=== PATIENT | female | born 1935 | race Caucasian/White ===

== ENCOUNTER 2025-06-07 08:48 | Outpatient (AMB) | payer MEDICARE, MEDICAID, SELFPAY ==
--- NOTE | 2025-06-07 09:07 | MHC.OFFVIS ---
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 She was c/o discomfort in feet and legs at night affecting her sleep. She was complaining of burning discomfort in her feet. She and a daughter had multiple questions that were answered [facility] Medical History (Updated 06/07/25 @ 09:12 by Lola Dowd MD) Numbness and tingling Anxiety disorder Seizure disorder Hypertension Multifactorial gait disorder Cerebral microvascular disease Peripheral neuropathy Surgical History (Updated 05/31/25 @ 09:12 by Latoya Chau CMA) S/P cardiac pacemaker procedure Review of Systems Const Details: Numbness and tingling in feet and legs Physical Exam Neuro Other: Mental Status: Alert and oriented to person, place, and time. Normal attention. Normal spontaneous speech, fluency, and comprehension. No obvious issues with mood and memory. Affect is appropriate. Cranial Nerves: CN II: Visual gama full to confrontation, visual acuity intact. CN III, IV, : Pupils equal, round, reactive to light and accommodation. Extraocular movements are normal. CN V: Facial sensation is normal. CN VII: Facial movements symmetrical. CN VIII: Hearing intact to bedside conversation is normal. CN IX, X: Palate elevates symmetrically. CN XI: Shoulder shrug and head turn symmetrical. CN XII: Tongue midline without atrophy or fasciculations. Extrapyramidal: Full facial expressions and blinking. No rigidity. Movements are appropriate with no tremor or abnormality. Speech: Normal; no dysarthria or tremor. 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 04/27/24. Routine EEG at off in Jul 2022: WNL CT brain WO at [place] in 2019: WM changes (reported) CT brain WO from [place] in April 2022: mild to mod MVD. Code(s): G62.9 - Polyneuropathy, unspecified Category: Medical Qualifiers: Peripheral neuropathy type: polyneuropathy, unspecified Qualified Code(s): G62.9 - Polyneuropathy, unspecified Plan Impression: Peripheral neuropathy and associated pain at night Rec: a: Stop gabpentin, it is not helping b: Try pregabilin 100mg one at night Medications: New pregabalin 100 mg PO BEDTIME 30 caps 1RF Coding Level of Care Code Est Pt Level 4 (83130) Diagnoses Peripheral polyneuropathy G62.9 Peripheral neuropathy type: polyneuropathy, unspecified
--- OUTSIDE RECORDS SUMMARY | 2025-06-07 09:14 | XMS_ITS | Clinical Summary ---
Author Organization [facility] Address [address] [place] [address] Care Team Providers Care Adobe Flex Developer Name Role Phone Jose Cuenca MD Primary Care Provider [phone] Allergies Active Allergy Reactions Criticality Noted Date Comments Nsaids 05/03/2008 Renal insufficiency Medications Medication Sig Dispensed Refills Start Date End Date Status allopurinol (ZYLOPRIM) 100 MG tablet Take 100 mg by mouth daily. 1 11/24/2018 Active atorvastatin (LIPITOR) tablet 20 mg Take 20 mg by mouth daily. 1 11/23/2018 Active gabapentin (NEURONTIN) 100 MG capsule Take 100 mg by mouth 3 (three) times a day. 0 11/28/2018 Active metoprolol tartrate (LOPRESSOR) 25 MG tablet Take 25 mg by mouth 2 (two) times a day. 1 11/23/2018 Active amLODIPine (NORVASC) tablet 5 mg Take 5 mg by mouth daily. 1 11/23/2018 Active valsartan (DIOVAN) tablet 80 mg Take 80 mg by mouth. 0 12/18/2018 Active Active Problems Problem Noted Date Diagnosed Date Stiffness of right shoulder joint 01/16/2019 Impingement syndrome of left shoulder region Internal impingement of right shoulder 9 Subacromial bursitis of right shoulder joint Family History Medical History Relation Name Comments Hypertension Father Relation Name Status Comments Father Social History Tobacco Use Types Packs/Day Years Used Date Smoking Tobacco: Former Cigarettes Q uit: 1994 Smokeless Tobacco: Never Alcohol Use Standard Drinks/Week Comments No 0 (1 standard drink = 0.6 oz pur e alcohol) Sex and Gender Information Value Date Recorded Sex Assigned at Not on file Gender Identity Not on file Sexual Orientation Not on file Last Filed Vital Signs Vital Sign Reading Time Taken Comments Blood Pressure - - Pulse - - Temperature - - Respiratory Rate - - Oxygen Saturation - - Inhaled Oxygen Concentration - - Weight 74.4 kg (164 lb) 12/18/2018 1:25 PM EST Height 152.4 cm (5') 12/18/2018 1:25 PM EST Body Mass Index 32.03 12/18/2018 1:25 PM EST Plan of Treatment Health Maintenance Due Date Last Done Comments COVID-19 Vaccine (#1) 1936 Depression Screening 1948 Preventative Health Evaluation 1954 DTap / Tdap / Td (1 - Tdap) 1955 Shingrix-Zoster Vaccine (1 of 2) 1986 Fall Risk Assessment 2001 Osteoporosis Screening (DEXA Scan) 2001 RSV Adult > 60+ Yrs or (1 - 1-dose 75+ series) 2011 Influenza Vaccine (#1) 2025 9, 09/20/2017, 08/10/2016, Additional history exists Pneumococcal Vaccine Completed 10/28/2015, 06/27/20 12 Hepatitis B Vaccines Aged Out No long er eligible based on patient's age to complete this topic RSV Ped < 20 months Aged Out No longe r eligible based on patient's age to complete this topic Care Teams Adobe Flex Developer Relationship Specialty Start Date End Date Jose Cuenca MD [id number] [facility] [place] [address] PCP - General Internal Medicine 11/21/18
--- OUTSIDE RECORDS SUMMARY | 2025-06-07 09:14 | XMS_ITS | Clinical Summary ---
Author Organization [address] [place] [address] Address [address] [place] [address] Phone Care Team Providers Care Chef Kitchen Manager Name Role Phone Yeyo Perez MD Primary Care Provider [phone] Allergies Active Allergy Reactions Criticality Noted Date Comments Nsaids (Non-Steroidal Anti-Inflammatory Drug) 05/03/2008 Renal insufficiency Medications cyanocobalamin (VITAMIN B-12) 1,000 mcg/mL injection Inject 1 mL into the muscle every 30 days. 03/23/20 24 Active medical supply, miscellaneous (MISCELLANEOUS MEDICAL SUPPLY MISC) RESPIRATORY THERAPY SUPPLIES ([employer] HOLDING CHAMBER/MASK) DEVICE 1 Puff by Does not apply route as needed (shortness of breath). 07/17/20 21 Active calcium carb/vit D3/minerals (CALCIUM CARBONATE-VIT D3-MIN ORAL) Take 1 tablet by mouth daily. Active cholecalciferol (VITAMIN D-3) 25 mcg (1,000 unit) capsule TAKE 1 CAPSULE BY MOUTH EVERY DAY 90 capsule 1 10/28/19 25 Active valsartan (DIOVAN) 80 mg tablet TAKE 1 TABLET BY MOUTH EVERY DAY 90 tablet 11/02/19 25 Active Eliquis 2.5 mg tablet TAKE 1 TABLET BY MOUTH TWICE A DAY 180 tablet 11/02/19 25 Active gabapentin (NEURONTIN) 100 mg capsule Take 2 capsules (200 mg total) by mouth at bedtime. 180 each 1 12/24/19 25 2024 Active metoprolol tartrate (LOPRESSOR) 25 mg tablet TAKE 1 TABLET BY MOUTH TWICE A DAY 180 tablet 1 03/25/20 25 Active atorvastatin (LIPITOR) 20 mg tablet TAKE 1 TABLET BY MOUTH EVERY DAY 90 tablet 1 03/29/20 25 Active ferrous sulfate 325 mg (65 mg elemental iron) tablet TAKE 1 TABLET BY MOUTH EVERY DAY 90 tablet 1 03/29/20 25 Active acetaminophen (TYLENOL 8 HOUR) 650 mg 8 hr tablet TAKE 1 TABLET BY MOUTH EVERY 8 HOURS NEEDED FOR PAIN 30 tablet 1 04/09/20 25 Active alendronate (FOSAMAX) 70 mg tablet TAKE 1 TABLET BY MOUTH ONE TIME PER WEEK 12 tablet 1 04/15/20 25 Active amLODIPine (NORVASC) 10 mg tablet TAKE 1 TABLET BY MOUTH 1 TIME EACH DAY. 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 This was also apparently noted on review of the images of the patient's prior left heart cath from 2003. The interventional cardiology service did not recommend any intervention for this incidentally noted small coronary artery fistula. Other cardiomyopathies (CMS/HCC V24, CMS/HCC V28 ) 01/19/2025 Assessment & Plan (01/19/2025 9:16 AM EDT): The patient has a history of a mild nonischemic cardiomyopathy. Echocardiogram from 2021 showed a mildly reduced LVEF of 45 to 50%. Left heart cath from 2020 did not show any significant obstructive CAD. The patient has continued on medical therapy with metoprolol tartrate and valsartan. Will order an echocardiogram to reevaluate her cardiac function. If the cardiac function is still reduced, then we will switch her from metoprolol to tartrate to Toprol and will consider adding additional GDMT as needed. Orders: Transthoracic echocardiogram (TTE) complete with PRN contrast, bubble, strain, and 3D order panel; Future perflutren lipid microsphere (DEFINITY) 1.3 mL in sodium chloride 0.9% 8.7 mL injection Peripheral neuropathic pain 11/06/2024 PAF (paroxysmal atrial fibri llation) ([facility] V24, [facility] V28) 07/24/2022 Overview (08/18/2024): Last Assessment & Plan: Patient has been noted to have paroxysmal atrial fibrillation on device monitoring. She recently was treated for a TIA while vacationing in [facility]. Her QLU5TS2- VASc score is 6 representing a 9.7% risk of thromboembolism annually. Her last creatinine was 1.7. Given her advanced age and decreased renal function she would meet criteria for reduced dose Eliquis. We discussed anticoagulation and patient is agreeable to start Eliquis 2.5 mg twice daily. Patient advised that if she were to fall or have increased difficulties with her balance she should let us know and we would need to discuss risk/benefits of continuing with anticoagulation. We also discussed that if she were to have a fall and hit her head she should be seen in the emergency room. Assessment & Plan (01/19/2025 9:16 AM EDT): The patient has a history of atrial fibrillation which has been detected on her previous device interrogations. The patient continues on rate control therapy with beta yusuf. Also, the patient has an elevated [id number]-GWCl score and continues on anticoagulation therapy with apixaban. The patient is on Eliquis 2.5 mg orally twice a day given her age and that her creatinine usually hovers around 1.5. No episodes of abnormal bleeding have been noted. Will continue current therapy. 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 This showed no obstructive coronary artery disease. Patient denies any exertional anginal symptoms at this time. She continues on appropriate cardioprotective medical therapy with aspirin, beta- yusuf and statin. I have reviewed with the patient the importance of a heart healthy lifestyle which includes eating a low-fat low-salt diet, getting regular exercise, maintaining a healthy weight, not smoking, and following up with routine medical care. Assessment & Plan (01/19/2025 9:16 AM EDT): The patient was found to have very mild nonobstructive CAD on the left heart catheterization from 2020. She continues on medical therapy with amlodipine, metoprolol, and atorvastatin. She is also on antithrombotic therapy with Eliquis. As such, this point, we will continue her current medication regimen. Ascending aorta dilation ([facility] V24) 0 Overview (08/18/2024): 09/09 3.8 cm Last Assessment & Plan: Patient has history of mild ascending aortic dilatation on echocardiogram from 08/2020. She recently had an echocardiogram completed. Preliminary report only available today. I will reassess and report results to patient and her family once final report is available. Assessment & Plan (01/19/2025 9:16 AM EDT): The patient was found to have a mild ascending aorta dilation on her prior echocardiogram from 2021. Will order an echocardiogram for reevaluation of the ascending aorta dilation. Chronic pain of right knee 06/24/2020 Closed displaced fracture of fifth metatarsal bone of left foot 02/23/2020 Sprain of left ankle 02/23/2020 Lightheadedness 02/12/2019 Stiffness of right shoulder joint 01/16/2019 Benign hypertensive kidney disease 11/20/2018 Goiter 01/30/2018 [place] light chain disease ([facility] V24) 01/31/20 18 Gout 06/11/2016 Anemia 02/03/2016 Overview (08/18/2024): Mild, possible thallesemia Renal cyst, acquired, right 01/03/2016 Thalassemia minor 12/27/2015 Macular drusen 06/16/2015 Pseudophakia 06/16/2015 PVD (posterior vitreous detachment) 06/16/2015 CKD (chronic kidney disease) , stage III ([facility] V24, [facility] V28) 11/25/2013 Overview (08/18/2024): Microalbuminuria 11/25/2013 Overview (08/18/2024): Microalbumin 73 on 06/25/12. 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 Paroxysmal atrial fibrillation was identified on device monitoring as noted and outlined above. We will continue to monitor her device and patient started on anticoagulation as appropriate. Assessment & Plan (01/19/2025 9:16 AM EDT): The patient has a pacemaker in place. It is a [employer] dual-chamber pacemaker. Last device interrogation showed normal device function. Will continue monitoring. Hyperlipidemia 11/02/2005 Overview (08/18/2024): Last Assessment & Plan: Patient's last LDL cholesterol was 56. This is at goal. Continue with statin as prescribed. Assessment & Plan (01/19/2025 9:16 AM EDT): The patient has a history of hyperlipidemia. She also has a history of mild nonobstructive CAD. The patient is currently on atorvastatin 20 mg orally daily. Last lipid panel showed an adequate cholesterol control. Would recommend to continue her current therapy. Osteoporosis 11/02/2005 Overview (08/18/2024): Started fosomax 09/2019 Overweight (BMI 25.0-29.9) 11/02/2005 Type II diabetes mellitus wi th renal manifestations ([facility] V24, [facility] V28) 11/02/2005 Resolved Problems Problem Noted Date Diagnosed Date Resolved Date Heart block, AV 03/06/2021 01/19/2025 Aortic atherosclerosis ([facility] V24) 11/26/2011 01/19/2025 Chest pain 10/16/2006 01/19/2025 Encounters Date Type Department Care Team Description 04/15/2025 1:30 PM EDT Ancillary Procedure [facility] - [address] [place] [id number] Other cardiomyopathies (CMS/HCC V24, CMS/HCC V28) 04/12/2025 11:00 AM EDT Ancillary Procedure [facility] - [address] [place] [id number] 04/07/2025 Telephone [facility] [address] [place] [address] [address] [place] [address] KarthikDwayne Medrano MD from Last 3 Months Immunizations Name Administration Dates Next Due H1N1 Inj Preservative Free 11/17/2009 Influenza Quadravalent, MDCK , 0.5ml, with preservative (Flucelvax) 6mo and older 11/20/2018,09/20/2017 Influenza trivalent, 0.5mL ( Fluad) 65yo and older 07/06/2024,07/13/2022,07/04/2020 Influenza trivalent, 0.5mL, preservative free (Fluarix; FluLaval; Fluzone) ages 6mo and older (Afluria) 3 years and older 08/10/2016,10/28/2015,08/20/2014,09/08,08/29/2012,07/20/2011,11/17/2009 ,09/15/2008,11/02/2005 Lanyrd SARS-CoV-2 COVID-19, mRNA, LNP-S, preservative free 11/26/2020 Pneumococcal conjugate 13 va lent (Prevnar 13, PCV13) 2mo and older 10/28/2015 Pneumococcal polysaccharide 23 valent (Pneumovax 23) 2yo and older 06/27/2012 Td Tetanus diptheria (Tdvax) 7yo and older 11/02/2005 Zoster recombinant (Shingrix ) 19yo and older 05/02/2020 Surgical History Surgery Date Site/Laterality Comments TONSILLECTOMY ADENOIDECTOMY, BILATERAL MYRINGOTOMY AND TUBES PROCEDURE: PA TONSILLECTOMY & ADENOIDECTOMY <AGE 12 APPENDECTOMY PROCEDURE: PA APPENDECTOMY ESOPHAGOGASTRODUODENOSCOPY 10/29/11 PROCEDURE: PA ESOPHAGOGASTRODUODENOSCOPY TRANSORAL DIAGNOSTIC; COMMENT: normal COLONOSCOPY 04/15/07 PROCEDURE: HISTORICAL COLONOSCOPY; COMMENT: adenoma; repeat in five years COLONOSCOPY W/ POLYPECTOMY 09/19/12 PROCEDURE: PA COLSC FLX W/RMVL OF TUMOR POLYP LESION SNARE TQ; COMMENT: adenoma, tics, hemorrhoids; would not repeat CATARACT EXTRACTION PROCEDURE: HISTORICAL CATARACT REMOVAL; COMMENT: 12/22/14 OS, 11/08/14 OD BREAST BIOPSY Right PROCEDURE: BX BREAST; PERC NEEDLE CORE W/IMAG GUID; COMMENT: x3, b9,rt. & lt.-benign BREAST SURGERY 2012 Right PROCEDURE: PA UNLISTED PROCEDURE BREAST; COMMENT: x2, b9 Medical History Medical History Date Comments Impaired fasting glucose 11/02/2005 DX:Impa ired fasting glucose Other and unspecified hyperlipidemia 11/02/2005 DX:Other and unspecified hyperlipidemia Obesity, unspecified 11/02/2005 DX:Obesity, unspecified Unspecified hypothyroidism 11/02/2005 DX:Un specified hypothyroidism Senile osteoporosis 11/02/2005 DX:Senile os teoporosis Heartburn 11/02/2005 DX:Heartburn Essential hypertension, benign 11/02/2005 D X:Essential hypertension, benign Renal insufficiency 05/03/2008 DX:Renal ins ufficiency Esophageal reflux DX:Esophageal reflux Type II diabetes mellitus wi th renal manifestations (CMS/HCC V24, CMS/HCC V28) DX:Type II diabetes mellitus with renal manifestations (HCC) Ascending aorta dilation (CMS/HCC V24) 09/25/2020 DX:Ascending aorta dilation (HCC); COMMENT: 09/09 3.8 cm Family History Medical History Relation Name Comments Breast cancer Daughter 43 Cataracts Mother No Known Problems Sister Blindness Neg Hx Glaucoma Neg Hx Macular degeneration Neg Hx Strabismus Neg Hx Relation Name Status Comments Daughter 43 Alive Father Mother Sister Alive Social History Tobacco Use Types Packs/Day Years Used Date Smoking Tobacco: Former Cigarettes 0.8 35 0 10/21/1955 - 10/21/1990 Smokeless Tobacco: Never Alcohol Use Standard Drinks/Week Comments Yes 0 (1 standard drink = 0.6 oz pur e alcohol) rare Comments No Sex and Gender Information Value Date Recorded Sex Assigned at Not on file Legal Sex Female 1:28 PM EST Gender Identity Not on file Sexual Orientation Not on file Obstetrics History Last Filed Vital Signs Vital Sign Reading Time Taken Comments Blood Pressure 114/74 04/15/2025 2:23 PM EDT Pulse 60 01/19/2025 8:30 AM EDT Temperature - - Respiratory Rate - - Oxygen Saturation 97% 01/19/2025 8:30 AM EDT Inhaled Oxygen Concentration - - Weight 72.6 kg (160 lb) 04/15/2025 2:23 PM EDT Height 152.4 cm (5') 04/15/2025 2:23 PM EDT Body Mass Index 31.25 04/15/2025 2:23 PM EDT Plan of Treatment Upcoming Encounters Date Type Department Care Team (Late st Contact Info) Description 10/26/2025 1:00 PM EST Ancillary Procedure [facility] - [address] [facility] [address] [place] [address] Health Maintenance Due Date Last Done Comments Diabetes: Annual Foot Exam 1945 Diabetes: Annual Retina Eye Exam 1945 RSV Immunization Adult Patients (1 - 1-dose 75+ series) 2011 DTaP,Tdap,and Td Vaccines (2 - Td or Tdap) 11/02/2015 11/02/2005 Falls Risk Assessment 09/29/2022 Medicare Annual Wellness Visit 09/29/2022 Social Influencers of Health Screening 09/29/2022 COVID-19 Vaccine ( season) 2024 07/21/2023, 01/18/2022, 07/19/2021, Additional history exists Depression Screening 10/21/2024 Diabetes: Blood Sugar Control Test (HGBA1C) 06/06/2025 12/07/2024, 08/02/2024, 07/31/2024, Additional history exists Influenza Vaccine (#1) 2025 , 07/20/2023, 07/13/2022, Additional history exists Hypertension/CHF/CAD Annual BMP Blood Test 12/07/2025 12/07/2024, 08/02/2024, 07/31/2024 Osteoporosis Screening (Bone Density Screening) 10/19/2029 10/19/2019 Cholesterol Screening (Lipid Panel) 12/07/2029 12/07/2024, 08/02/2024, 07/31/2024 Pneumococcal Vaccine: 50+ Years Completed 10/28/2015, 06/27/2012 Zoster Vaccines Completed 05/02/2020, 12/16/2019 HIB Vaccines Aged Out No longer eligi ble based on patient's age to complete this topic HPV Vaccines Aged Out No longer eligi ble based on patient's age to complete this topic Hepatitis A Vaccines Aged Out No long er eligible based on patient's age to complete this topic Hepatitis B Vaccines Aged Out No long er eligible based on patient's age to complete this topic IPV Vaccines Aged Out No longer eligi ble based on patient's age to complete this topic MMR Vaccines Aged Out No longer eligi ble based on patient's age to complete this topic Meningococcal ACWY Vaccine Aged Out N o longer eligible based on patient's age to complete this topic Meningococcal B Vaccine Aged Out No l onger eligible based on patient's age to complete this topic RSV Immunization Patients Under 20 months Aged Out No longer eligible based on patient's age to complete this topic Varicella Vaccines Aged Out No longer eligible based on patient's age to complete this topic Medical Devices Implanted Type Area Legal Internship Device Identifier Shelf Expiration Date Model / Serial / Lot [employer] [id number] Assurity Mri(Tm) [id number] Implanted: by James Sorensen MD (Quantity not on file) Cardiac Pacemaker Left: Chest [employer]- [employer] 2272 ASSURITY MRI(TM) / [id number] / Procedures Procedure Name Priority Date/Time Associated Diagnosis Comments TRANSTHORACIC ECHOCARDIOGRAM (TTE) COMPLETE W/ CONTRAST Routine 04/15/2025 2:23 PM EDT Other cardiomyopathies (CMS/HCC V24, CMS/HCC V28) CARDIAC DEVICE CHECK- REMOTE- MURJ Routine 04/12/2025 10:58 AM EDT COMPREHENSIVE METABOLIC PANEL Routine 12/07/2024 9:03 AM EST Type 2 diabetes mellitus with other diabetic kidney complication, without long-term current use of insulin (CMS/HCC V24, CMS/HCC V28) HEMOGLOBIN A1C Routine 12/07/2024 9:03 AM EST Type 2 diabetes mellitus with other diabetic kidney complication, without long-term current use of insulin ([facility] V24, [facility] V28) LIPID PANEL WITH REFLEX TO DIRECT LDL Routine 12/07/2024 9:03 AM EST Type 2 diabetes mellitus with other diabetic kidney complication, without long-term current use of insulin ([facility] V24, [facility] V28) DXA BONE DENSITY STUDY 1+ SITS AXIAL SKEL Routine 10/19/2019 9:24 AM EST Age-related osteoporosis without current pathological fracture from Last 3 Months or Most Recently Relevant to Health Maintenance Results * (ABNORMAL) TRANSTHORACIC ECHOCARDIOGRAM (TTE) COMPLETE W/ CONTRAST (04/15/2025 2:23 PM EDT) LV EDV (A2C) 102 mL CV PACS LV EDV (A4C) 97 mL CV PACS LV Diastolic Volume (BP) 100 46 - 106 mL CV PACS LV ESV (A2C) 35 mL CV PACS LV ESV (A4C) 42 mL CV PACS LV Systolic Volume (BP) 40 14 - 42 mL CV PACS IVSD 1.1(A) 0.6 - 0.9 cm CV PACS LVIDD 4.6 3.8 - 5.2 cm CV PACS LVIDS 3.1 2.2 - 3.5 cm CV PACS LVOT Diameter 2.0 cm CV PACS LVOT Mean Nicholas 0.7 m/s CV PACS LVOT Mean Grad 2 mmHg CV PACS LVOT Peak VTI 22.6 cm CV PACS LVOT Peak Nicholas 1.0 m/s CV PACS LVOT Peak Gradient 4 mmHg CV PACS LVPWD 1.1(A) 0.6 - 0.9 cm CV PACS MV E' Tissue Velocity Lateral 5 cm/s CV PACS MV E' Tissue Velocity Septal 4 cm/s CV PACS GLS -17.3 % CV PACS Ejection Fraction (A2C) 66 % CV PACS Ejection Fraction (A4C) 57 % CV PACS Ejection Fraction (BP) 60 % CV PACS LVOT Area 3.1 cm2 CV PACS LVOT Stroke Volume 71 mL CV PACS Left Atrium Minor [place] 5.7 cm CV PACS Left Atrium Major [place] 5.8 cm CV PACS LA Area Sys (A2C) 22 cm2 CV PACS LA Area Sys (A4C) 21 cm2 CV PACS LA Volume (BP) 63 mL CV PACS RA Area 16.0 cm2 CV PACS RA 2D Volume 36 mL CV PACS AV Mean Gradient 6 mmHg CV PACS Ao VTI 37.6 cm CV PACS AV Peak Nicholas 1.6 m/s CV PACS AV Peak Gradient 10 mmHg CV PACS AV Area Continuity Equation 1.9 cm2 CV PACS AV Area Peak Velocity 1.9 cm2 CV PACS Aortic Sinus Valsalva 3.3 cm CV PACS Ascending Aorta 3.7 cm CV PACS IVC Proximal 1.6 cm CV PACS MV Deceleration [place] 3.5 m/s2 CV PACS E Wave Deceleration Time 210 119 - 242 ms CV PACS MV PHT 62 ms CV PACS MV Peak A Nicholas 0.95 m/s CV PACS MV Peak E Nicholas 0.74 m/s CV PACS MV Mean Gradient 2 mmHg CV PACS MV VTI 28.9 cm CV PACS Mitral Valve Max Velocity 1.1 m/s CV PACS MV Peak Gradient 5 mmHg CV PACS MV Area PHT 3.6 cm2 CV PACS MV Area Continuity Equation 2.5 cm2 CV PACS PV Acceleration Time 137 ms CV PACS PV Acceleration Time 137 ms CV PACS RV Diastolic Basal Dimension 3.0 2.5 - 4.1 cm CV PACS RV S' 16 cm/s CV PACS TAPSE 19 mm CV PACS TR Peak Velocity 1.64 m/s CV PACS TR Peak Gradient 11 mmHg CV PACS LV ESV Index (A4C) 25 mL/m2 CV PACS LV EDV Index (A4C) 57 mL/m2 CV PACS E/E' Ratio Septal 19 CV PACS E/E' Ratio Averaged 17 CV PACS LVOT Stroke Index 42 mL/m2 CV PACS Relative Wall Thickness ratio 0.48 CV PACS LVOT:AV VTI Index 0.60 CV PACS FS 33 % CV PACS LV Mass 2D 181 g CV PACS Ascending Aorta Index 2.18 cm/m2 CV PACS MV VTI:LVOT VTI ratio 1.3 CV PACS LVOT flow 220 mL/s CV PACS RA 2D Volume Index 21 mL/m2 CV PACS EDGAR Index (VTI) 1.11 cm2/m2 CV PACS EDGAR Index (Pk Nicholas) 1.12 cm2/m2 CV PACS LVIDD Index 2.71 cm/m2 CV PACS LVIDS Index 1.82 cm/m2 CV PACS AV Velocity Ratio 0.63 CV PACS E/A Ratio 0.8 CV PACS E/E' Ratio Lateral 15 CV PACS LV Systolic Volume Index (BP) 24 mL/m2 CV PACS LV Diastolic Volume Index (BP) 59 mL/m2 CV PACS LA Volume Index (BP) 37 mL/m2 CV PACS LV Mass Index 2D 107 g/m2 CV PACS LV EDV Index (A2C) 60 mL/m2 CV PACS LV ESV Index (A2C) 21 mL/m2 CV PACS BSA 1.75 m2 CV PACS Right Ventricular Peak Systolic Pressure 14 mmHg CV PACS Est. RA Pressure 3 mmHg CV PACS Anatomical Region Laterality Modality Ultrasound Narrative 05/16/2025 1:41 PM EDT Left Ventricle: Systolic function is normal. The quantitative EF by 2D Sofia biplane is 60%. LV global longitudal strain is borderline. Global longitudinal strain is -17.3%. LV strain quantitative apical sparing ratio: 1. No regional LV wall motion abnormalities noted. Left ventricle mild concentric hypertrophy. Right Ventricle: Right ventricle cavity appears normal. Systolic function is normal. RV S' 16 cm/sec. Normal TAPSE (> 17 mm), measuring 19 mm. A pacer wire is present in the right ventricle. Mitral Valve: There is mild regurgitation. Trivial pericardial effusion. Left Ventricle Left ventricle cavity size is normal. False tendon noted near the LV apex. There is mild concentric hypertrophy. Systolic function is normal. The quantitative EF by 2D Sofia biplane is 60%. LV global longitudal strain is borderline. Global longitudinal strain is -17.3%. LV strain quantitative apical sparing ratio: 1. There are no regional LV wall motion abnormalities. There is Grade I (mild) diastolic dysfunction. There is abnormal septal motion consistent with right ventricular pacing. Right Ventricle Right ventricle cavity appears normal. Systolic function is normal. RV S' 16 cm/sec. Normal TAPSE (> 17 mm), measuring 19 mm. A pacer wire is present in the right ventricle. Left Atrium Left atrium cavity is mildly dilated. Right Atrium Right atrium cavity is normal. Pacer wire present in right atrium. IVC/SVC RA pressures is estimated to be 3 mmHg (IVC diameter <21 mm and decreases >50% during inspiration). Mitral Valve The leaflets are mildly thickened. There is mild annular calcification. There is mild regurgitation. There is no evidence of mitral valve stenosis. Tricuspid Valve Tricuspid valve structure is normal. There is trace regurgitation. There is no evidence of tricuspid valve stenosis. Aortic Valve The aortic valve is trileaflet. There is no regurgitation or stenosis. Pulmonic Valve Pulmonic valve structure is normal. There is trace pulmonic valve regurgitation. There is no evidence of pulmonic valve stenosis. Ascending Aorta The aorta appears normal in size. Pericardium There is an anterior fat pad. There is a trivial pericardial effusion. Study Details Overall the study quality was technically difficult. Additional technique includes myocardial strain. Definity contrast was given to enhance imaging. Dwayne Tuttle MD CV ECHO PROCEDURES [facility] al Result * Cardiac device check - Remote- MURJ (04/12/2025 10:58 AM EDT) Date Time Interrogation Session [id number] CV DEVICE CHECK Type Interrogation Session Remote Scheduled CV DEVICE CHECK Implantable Pulse Generator Legal Internship [employer] CV DEVICE CHECK Implantable Pulse Generator Type IPG CV DEVICE CHECK Implantable Pulse Generator Model 2272 Assurity MRI(TM) CV DEVICE CHECK Implantable Pulse Generator Serial Number [id number] CV DEVICE CHECK Implantable Pulse Generator Implant Date [id number] CV DEVICE CHECK Battery Remaining Percentage 84.00 CV DEVICE CHECK Battery Remaining Longevity 65.0 CV DEVICE CHECK Battery Voltage 2.990 CV D EVICE CHECK Battery BLOCK AND CASE MAKER Trigger 2.600 CV DEVICE CHECK Battery Status Middle of Service CV DEVICE CHECK Joe Statistic RA Percent Paced 98.00 CV DEVICE CHECK Joe Statistic RV Percent Paced 99.00 CV DEVICE CHECK Atrial Tachy Statistic AT/AF [place] Percent 0.00 CV DEVICE CHECK Lead Channel Sensing Intrinsic Amplitude 1.400 CV DEVICE CHECK Lead Channel Setting Sensing Sensitivity 0.30 CV DEVICE CHECK Lead Channel Impedance Value 340 CV DEVICE CHECK Lead Channel Setting Pacing Amplitude 5.000 CV DEVICE CHECK Lead Channel Setting Pacing Pulse Width 0.4 CV DEVICE CHECK Lead Channel Sensing Intrinsic Amplitude 7.200 CV DEVICE CHECK Lead Channel Setting Sensing Sensitivity 0.50 CV DEVICE CHECK Lead Channel Impedance Value 390 CV DEVICE CHECK Lead Channel Pacing Threshold Amplitude 0.750 CV DEVICE CHECK Lead Channel Pacing Threshold Pulse Width 0.4 CV DEVICE CHECK Lead Channel RV Pacing Threshold Date 2025-03-24 CV DEVICE CHECK Lead Channel Setting Pacing Amplitude 1.000 CV DEVICE CHECK Lead Channel Setting Pacing Pulse Width 0.4 CV DEVICE CHECK Joe Setting Mode (NBG Code) DDDR CV DEVICE CHECK Joe Setting Lower Rate Limit 60 CV DEVICE CHECK Joe Setting AT Mode Switch Rate 180 CV DEVICE CHECK Joe Setting Maximum Tracking Rate 110 CV DEVICE CHECK Joe Setting Maximum Sensor Rate 110 CV DEVICE CHECK Joe Setting PAV Delay 200 CV DEVICE CHECK Joe Setting JERMAN Delay 150 CV DEVICE CHECK Date of Service 2025-04-12 CV DEVICE CHECK Anatomical Region Laterality Modality Device Interroga tion 03/24/2025 2:46 AM EDT Impressions 04/12/2025 10:51 AM EDT Normal Remote: No Events * Normal Device Function * Alerts or events: None * Battery: Battery is at 84%, 5.42 yrs * Sensing, impedance and thresholds reviewed * Programmed parameters reviewed * Presenting rhythm reviewed * Heart Rate Histograms reviewed * No significant changes noted Narrative Procedure Note James Sorensen MD - 04/12/2025 IMPRESSION: Normal Remote: No Events * Normal Device Function * Alerts or events: None * Battery: Battery is at 84%, 5.42 yrs * Sensing, impedance and thresholds reviewed * Programmed parameters reviewed * Presenting rhythm reviewed * Heart Rate Histograms reviewed * No significant changes noted James Sorensen MD CV IMPLANTABLE CARDIAC DEV ICE PROCEDURES Final Result * Lipid panel with reflex to direct LDL (12/07/2024 9:03 AM EST) Cholesterol 152 0 - 200 mg/dL LAB CHEMISTRY METHOD 12/07/2024 12:[address] [facility] Triglycerides 113 0 - 150 mg/dL LAB CHEMISTRY METHOD 12/07/2024 12:[address] [facility] HDL 57 >=40 mg/dL LAB CHEMISTRY METHOD 12/07/2024 12:28 PM [facility] LDL Calculated 72 0 - 100 mg/dL LAB CHEMISTRY METHOD 12/07/2024 12:28 PM [facility] VLDL Cholesterol Bhaskar 22.6 mg/dL LAB CHEMISTRY METHOD 12/07/2024 12:28 PM [facility] Non HDL Chol. (LDL+VLDL) 95 <145 mg/dL LAB CHEMISTRY METHOD 12/07/2024 12:[address] [facility] Chol/HDL Ratio 2.7 0.0 - 4.4 LAB CHEMISTRY METHOD 12/07/2024 12:28 PM [facility] Blood Venous blood specimen / Unknown Venipuncture / Unknown 12/07/2024 9:03 AM EST 12/07/2024 9:03 AM EST us Yeyo Perez MD LAB BLOOD ORDERABLES Final Res ult [facility] [address] [place] [address], * (ABNORMAL) Hemoglobin A1c (12/07/2024 9:03 AM EST) Hemoglobin A1C 6.7(H) <6.5 % LAB CHEMISTRY METHOD 12/07/2024 2:[address] [facility] Mean Bld Glu Estim. 146 mg/dL LAB CHEMISTRY METHOD 12/07/2024 2:[address] [facility] Blood Venous blood specimen / Unknown Venipuncture / Unknown 12/07/2024 9:03 AM EST 12/07/2024 9:03 AM EST us Yeyo Perez MD LAB BLOOD ORDERABLES Final Res ult [facility] [address] [place] [address], [place] [phone] * (ABNORMAL) Comprehensive metabolic panel (12/07/2024 9:03 AM EST) Sodium 141 133 - 145 mmol/L LAB CHEMISTRY METHOD 12/07/2024 12:29 PM [facility] Potassium 4.7 3.5 - 5.5 mmol/L LAB CHEMISTRY METHOD 12/07/2024 12:29 PM [facility] Chloride 110 96 - 110 mmol/L LAB CHEMISTRY METHOD 12/07/2024 12:29 PM [facility] CO2 29 21 - 32 mmol/L LAB CHEMISTRY METHOD 12/07/2024 12:29 PM [facility] Anion Gap 2(L) 3 - 11 LAB CHEMISTRY METHOD 12/07/2024 12:29 PM [facility] Glucose 129(H) 70 - 100 mg/dL LAB CHEMISTRY METHOD 12/07/2024 12:29 PM [facility] BUN 31(H) 5 - 25 mg/dL LAB CHEMISTRY METHOD 12/07/2024 12:29 PM [facility] Creatinine 1.45(H) 0.50 - 1.10 mg/dL LAB CHEMISTRY METHOD 12/07/2024 12:29 PM [facility] eGFR 35(L) >=60 mL/min/1. 73m2 LAB CHEMISTRY METHOD 12/07/2024 12:29 PM [facility] Comment:Calculation based on the Chronic Kidney Disease Epidemiology Collaboration (CKD-EPI) equation refit without adjustment for race. BUN/Creatinine Ratio 21.4 LAB CHEMISTRY METHOD 12/07/2024 12:29 PM [facility] Calcium 9.1 8.5 - 10.5 mg/dL LAB CHEMISTRY METHOD 12/07/2024 12:29 PM [facility] AST (SGOT) 15 10 - 42 unit/L LAB CHEMISTRY METHOD 12/07/2024 12:[address] [facility] ALT (SGPT) 19 10 - 60 unit/L LAB CHEMISTRY METHOD 12/07/2024 12:[address] [facility] Alkaline Phosphatase 60 42 - 121 unit/L LAB CHEMISTRY METHOD 12/07/2024 12:29 PM [facility] Total Protein 6.9 6.0 - 8.0 g/dL LAB CHEMISTRY METHOD 12/07/2024 12:29 PM [facility] Albumin 3.5 3.2 - 5.0 g/dL LAB CHEMISTRY METHOD 12/07/2024 12:29 PM [facility] Total Bilirubin 0.5 0.0 - 1.4 mg/dL LAB CHEMISTRY METHOD 12/07/2024 12:29 PM [facility] Blood Venous blood specimen / Unknown Venipuncture / Unknown 12/07/2024 9:03 AM EST 12/07/2024 9:03 AM EST us Yeyo Perez MD LAB BLOOD ORDERABLES Final Res ult [facility] [address] [place] [address], * DXA BONE DENSITY STUDY 1+ SITS AXIAL SKEL (10/19/2019 9:24 AM EST) Anatomical Region Laterality Modality Bone Densitometr y 11/20/2018 2:48 PM EST Narrative 10/19/2019 12:34 PM EST BONE DENSITY Lumbar Spine T-score is -1.0 (SD relative to 20-29 y/o adult) Z-score is +1.8 (SD relative to age matched peers) This is normal by criteria defined by the WHO. Left Hip T-score is -2.8 Z-score is -0.4 This is consistent with osteoporosis by criteria defined by the WHO. Comparison exam(s): no statistically significant change in the bone density of the hip and lumbar spine when compared to most recent bone density examination Confidence level is +/-95%. Impression: Based on the World Health Organization criteria, Eren Colby should be classified as having osteoporosis. [facility] Department of Internal Medicine recommends using National Osteoporosis Foundation (NOF) guidelines in treatment decisions related to osteoporosis. NOF guidelines suggest considering treatment for postmenopausal women and men aged 50 or older presenting with the following: History of hip or vertebral fracture. T-score less than or equal to -2.5 (DXA) at the femoral neck, total hip, or spine, after appropriate evaluation to exclude secondary causes. Low bone mass (T-score between -1.0 and -2.5 at the femoral neck or spine) AND a 10-year probability of a hip fracture greater than or equal to 3% OR a 10-year probability of a major osteoporosis-related fracture greater than or equal to 20% based on the [place]-adapted WHO algorithm Please note that all treatment decisions require clinical judgment and consideration of individual patient factors, including patient preferences, co-morbidities, previous drug use, risk factors not captured in the FRAX model (e.g., frailty, falls, vitamin D deficiency, increased bone turnover, interval significant decline in bone density) and possible under- or over-estimation of fracture risk by FRAX. Procedure Note Gabrielle Rueda MD - 10/09/2022 BONE DENSITY Lumbar Spine T-score is -1.0 (SD relative to 20-29 y/o adult) Z-score is +1.8 (SD relative to age matched peers) This is normal by criteria defined by the WHO. Left Hip T-score is -2.8 Z-score is -0.4 This is consistent with osteoporosis by criteria defined by the WHO. Comparison exam(s): no statistically significant change in the bonedensity of the hip and lumbar spine when compared to most recent bonedensity examination Confidence level is +/-95%. Impression: Based on the World Health Organization criteria, Eren Colby should beclassified as having osteoporosis. [facility] Department of Internal Medicine recommendsusing National Osteoporosis Foundation (NOF) guidelines in treatmentdecisions related to osteoporosis. NOF guidelines suggest consideringtreatment for postmenopausal women and men aged 50 or older presentingwith the following: History of hip or vertebral fracture. T-score less than or equal to -2.5 (DXA) at the femoral neck, total hip,or spine, after appropriate evaluation to exclude secondary causes. Low bone mass (T-score between -1.0 and -2.5 at the femoral neck or spine)AND a 10-year probability of a hip fracture greater than or equal to 3% ORa 10-year probability of a major osteoporosis-related fracture greaterthan or equal to 20% based on the [place]-adapted WHO algorithm Please note that all treatment decisions require clinical judgment andconsideration of individual patient factors, including patientpreferences, co-morbidities, previous drug use, risk factors not capturedin the FRAX model (e.g., frailty, falls, vitamin D deficiency, increasedbone turnover, interval significant decline in bone density) and possibleunder- or over-estimation of fracture risk by FRAX. Jose Cuenca MD IMG DXA PROCEDURES Final Result from Last 3 Months or Most Recently Relevant to Health Maintenance Insurance MEDICARE MEDICAID - [place] Care Teams Chef Kitchen Manager Relationship Specialty Start Date End Date Yeyo Perez MD [address] [place] [id number] PCP - General Internal Medicine 05/26/20
--- OUTSIDE RECORDS SUMMARY | 2025-06-07 09:15 | XMS_ITS | Clinical Summary ---
Author Organization [facility] Address [address] [address] Phone Care Team Providers Care Energy Trading Analyst Name Role Phone Yeyo Perez MD Primary Care Provider [phone] Allergies Active Allergy Reactions Criticality Noted Date Comments Nsaids 05/03/2008 Renal insufficiency Renal insufficiency Medications Ferrous Sulfate (Iron) 325 (65 Fe) MG tablet Take 65 mg by mouth 1 (one) time each day Active valsartan (DIOVAN) 40 MG tablet Take 1 tablet by mouth in the morning and 1 tablet in the evening. 10/02/2021 Active alendronate (FOSAMAX) 70 MG tablet Take 1 tablet by mouth 1 (one) time per week 09/22/2021 Active gabapentin (NEURONTIN) 100 MG capsule Take 100 mg by mouth in the morning and 100 mg at noon and 100 mg in the evening. 01/26/2021 Active amLODIPine (NORVASC) 5 MG tablet Take 5 mg by mouth 1 (one) time each day Active allopurinol (ZYLOPRIM) 100 MG tablet Take 1 tablet by mouth 1 (one) time each day 01/24/2022 Active aspirin (ST PRICE) 81 MG EC tablet Take 81 mg by mouth 1 (one) time each day Active gabapentin (NEURONTIN) 100 MG capsule Take 1 capsule by mouth 01/29/2022 Active atorvastatin (LIPITOR) 20 MG tablet Take 1 tablet by mouth 1 (one) time each day 01/25/2022 Active omeprazole (PriLOSEC) [address] capsule Take 20 mg by mouth 1 (one) time each day Active epoetin david (EPOGEN,PROCRIT ) 14020 UNIT/ML injectionIndica tions:Anemia due to Renal Failure Inject 1 mL (10,000 Units total) under the skin every 7 (seven) days 4 mL 2 01/31/2022 Active cholecalciferol (VITAMIN D-3) 25 MCG (1000 UT) capsule Take 1 capsule (1,000 Units total) by mouth 1 (one) time each day 90 capsule 3 06/11/2022 Active Calcium Carbonate-Vitam in D3 600-400 MG-UNIT tablet Take 1 tablet by mouth 1 (one) time each day 90 tablet 3 06/11/2022 Active metoprolol succinate XL (TOPROL XL) 25 MG 24 hr tablet Take 25 mg by mouth 1 (one) time each day Do not crush or chew. Active Hospital, Clinic, or Other Facility Administered Medication Ordered Dose Route Frequency Start Date End Date Status epoetin david (EPOGEN,PROCRIT) injection 20,000 UnitsIndications:Anemia due to Renal Failure 05828 Units IV Every 14 days 08/29/2022 Active epoetin david (EPOGEN,PROCRIT) injection 10,000 UnitsIndications:Anemia due to Renal Failure 76196 Units IV Every 14 days 10/24/2022 Active Epoetin David-epbx solution 20,000 UnitsIndications:Chroni c kidney disease, not otherwise specified,Anemia in chronic kidney disease 98876 Units IJ Once 05/16/2023 A ctive Epoetin David-epbx solution 20,000 UnitsIndications:Chroni c kidney disease, not otherwise specified,Anemia in chronic kidney disease 44965 Units IJ Once 03/27/2024 A ctive Epoetin David-epbx solution 30,000 UnitsIndications:Anemia in chronic kidney disease,Chronic kidney disease, stage 4 (severe) ([facility]) 82315 Units IJ Once 05/27/2025 05/27/2025 Ended Active Problems Problem Noted Date Diagnosed Date Chronic kidney disease, stage 4 (severe) 022 Atrioventricular block 03/06/2021 Coronary arteriosclerosis 01/18/2021 Overview (04/10/2021): Last Assessment & Plan: The patient continues to complain of shortness of breath with exertion. Her shortness of breath is associated with a mild epigastric discomfort. The patient underwent a nuclear stress test in September 2020 that showed an apparent apical infarct without any evidence of ischemia. The patient is already on antianginal therapy with metoprolol and amlodipine. Nevertheless, her symptoms persist. Therefore, we discussed the possibility of a left heart catheterization in order to evaluate her coronary anatomy. We discussed the risk and benefits of the procedure. After the conversation, the patient agreed to undergo the procedure. Therefore, we will schedule the patient for a left heart catheterization to be done soon as possible. In the meantime, we will start the patient on aspirin 81 mg orally daily. The patient states that aspirin has given her upset stomach in the past. She denies any rash or shortness of breath with the use of aspirin. Given the possibility of significant underlying coronary artery disease, we will start the patient on aspirin 81 mg orally daily. In order to avoid her upset stomach, we will also start her on omeprazole 20 mg orally daily. The patient will continue her current therapy with amlodipine and metoprolol. 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 Overview (01/05/2021): 09/09 3.8 cm Pain of knee region 06/24/2020 Closed fracture of fifth metatarsal bone 020 Sprain of left ankle 02/23/2020 Lightheadedness 02/12/2019 Impingement syndrome of left shoulder region Stiffness of right shoulder 01/16/2019 Bursitis of right shoulder 12/18/2018 Internal impingement of right shoulder 9 Benign hypertensive renal disease 11/20/2018 Left ventricular systolic dysfunction 11/20/2018 Goiter 01/30/2018 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 Nuclear sclerosis 08/29/2012 Atherosclerosis of aorta 11/26/2011 Cardiac pacemaker in situ 09/24/2011 Overview (01/05/2021): AV block Chest pain 10/16/2006 Benign essential hypertension 11/02/2005 Body mass index 25-29 - overweight 11/02/2005 Hyperlipidemia 11/02/2005 Osteoporosis 11/02/2005 Type 2 diabetes mellitus 11/02/2005 Encounters Date Type Department Care Team Description 05/27/2025 1:30 PM EDT Clinical Support [facility] [address] [phone] Anemia in chronic kidney disease (Primary Dx); Chronic kidney disease, stage 4 (severe) (HCC) 05/12/2025 Orders Only [facility] [address] [address] Bart Marie MD Chronic kidney disease, stage 4 (severe) ([facility]); Renal disorder due to type 2 diabetes mellitus <Diabetic nephropathy> ([facility]); Microalbuminuria; Anemia in chronic kidney disease 04/29/2025 1:30 PM EDT Clinical Support [facility] [address] [address] Anemia in chronic kidney disease (Primary Dx) 03/25/2025 1:30 PM EDT Clinical Support [facility] [address] [address] Anemia in chronic kidney disease (Primary Dx) from Last 3 Months Immunizations Immunization Administration Dates Next Due H1N1 Inj Preservative Free 11/17/2009 Influenza Split High Dose Pr eservative Free IM 07/04/2020 Influenza TIV (IM) 08/10/2016, 6,08/20/2014,09/08,08/29/2012,07/20/2011,11/17/2009 ,09/15/2008,11/02/2005 Influenza, MDCK, Quadrivalen t, with preservative 11/20/2018,09/20/2017 Pneumococcal Conjugate 13-Valent 10/28/2015 Pneumococcal Polysaccharide 06/27/2012 Shingrix 05/02/2020 Td 11/02/2005 Family History Medical History Relation Comments Cancer Child Relation Status Comments Child Father Mother Social History Tobacco Use Types Packs/Day Years Used Date Smoking Tobacco: Former Cigarettes Q uit: 11/25/1997 Smokeless Tobacco: Never Tobacco Cessation:Counseling Given: No Alcohol Use Standard Drinks/Week Comments Yes 0 (1 standard drink = 0.6 oz pure alcohol) Alcoholic Drinks/day: Occasional social drink Comments Unknown Sex and Gender Information Value Date Recorded Sex Assigned at Not on file Legal Sex Female 5:00 PM EST Gender Identity Not on file Sexual Orientation Not on file Last Filed Vital Signs Vital Sign Reading Time Taken Comments Blood Pressure 124/62 05/27/2025 9:47 AM EDT Pulse 60 02/22/2025 3:13 PM EDT Temperature - - Respiratory Rate 22 03/13/2023 1:53 PM EDT Oxygen Saturation 95% 09/21/2024 3:21 PM EST Inhaled Oxygen Concentration - - Weight 72.8 kg (160 lb 6.4 oz) 02/22/2025 3:13 P M EDT Height 152.4 cm (5') 09/21/2024 3:21 PM EST Body Mass Index 31.33 09/21/2024 3:21 PM EST Plan of Treatment Upcoming Encounters Date Type Department Care Team (Late st Contact Info) Description 06/28/2025 3:45 PM EDT Office Visit [facility] [address] [phone] Bart Marie MD [address] [phone] Health Maintenance Due Date Last Done Comments Diabetes: Ophthalmology Exam 11/18/2020 06/19/2017, 06/18/2016, 10/05/2013, Additional history exists Diabetes: Pedal Pulse Checked 11/18/2020 Diabetes: Sensory Foot Exam 11/18/2020 Diabetes: Visual Foot Exam 11/18/2020 Diabetes: Hemoglobin A1C 03/06/2025 025, 08/02/2024, 07/31/2024, Additional history exists Influenza Vaccine (#1) 2025 , 07/13/2022, 07/04/2020, Additional history exists Pneumococcal Vaccine: 50+ Years Completed 10/28/2015, 06/27/2012 Pneumococcal Vaccine: Peds (0 to 5 Years) and At-Risk Patients (6 to 49 Years) Discontinued 10/28/2015, 06/27/2012 Hepatitis B Vaccine Aged Out No longe r eligible based on patient's age to complete this topic Procedures Procedure Name Priority Date/Time Associated Diagnosis Comments PROTEIN / CREATININE RATIO, URINE Routine 05/24/2025 10:08 AM EDT Chronic kidney disease, stage 4 (severe) (HCC) Renal disorder due to type 2 diabetes mellitus <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) Microalbuminuria Anemia in chronic kidney disease RENAL FUNCTION PANEL Routine 05/24/2025 10:08 AM EDT Chronic kidney disease, stage 4 (severe) (HCC) Renal disorder due to type 2 diabetes mellitus <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) Microalbuminuria Anemia in chronic kidney disease CBC AND DIFFERENTIAL Routine 05/24/2025 10:08 AM EDT Chronic kidney disease, stage 4 (severe) (HCC) Renal disorder due to type 2 diabetes mellitus <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) Microalbuminuria Anemia in chronic kidney disease FERRITIN Routine 05/24/2025 10:08 AM EDT Chronic kidney disease, stage 4 (severe) (HCC) Renal disorder due to type 2 diabetes mellitus <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) Microalbuminuria Anemia in chronic kidney disease IRON PANEL (FE, TIBC, TSAT) Routine 05/24/2025 10:08 AM EDT Chronic kidney disease, stage 4 (severe) (HCC) Renal disorder due to type 2 diabetes mellitus <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) Microalbuminuria Anemia in chronic kidney disease POCT HEMOGLOBIN Routine 04/29/2025 1:40 PM EDT Anemia in chronic kidney disease POCT HEMOGLOBIN Routine 03/25/2025 1:35 PM EDT Anemia in chronic kidney disease HEMOGLOBIN A1C Routine 07/18/2020 12:53 PM EDT from Last 3 Months or Most Recently Relevant to Health Maintenance Results * (ABNORMAL) Iron Panel (Fe, TIBC, TSAT) (05/24/2025 10:08 AM EDT) TIBC 248(L) 250 - 450 ug/dL [facility] UIBC 140 118 - 369 ug/dL [facility] Iron 108 27 - 139 ug/dL [facility] Iron Saturation (TSat) 44 15 - 55 % [facility] Blood specimen (specimen) Venous blood / Unknown 05/24/2025 10:08 AM EDT 05/24/2025 us Bart Marie MD LAB BLOOD ORDERABLES Final Resu lt [facility] [address] [place] [address] * (ABNORMAL) Urine Protein / creatinine ratio (05/24/2025 10:08 AM EDT) Creatinine, Ur 56.6 Not Estab. mg/dL [facility] Protein, Ur 33.4 Not Estab. mg/dL [facility] Urine Protein/Creati nine Ratio 590(H) 0 - 200 mg/g creat [facility] Urine specimen (specimen) Urine specimen obtained by clean catch procedure / Unknown 05/24/2025 10:08 AM EDT 05/24/2025 us Bart Marie MD LAB URINE ORDERABLES Final Resu lt [facility] [address] [place] [address] * (ABNORMAL) CBC and differential (05/24/2025 10:08 AM EDT) WBC 7.8 3.4 - 10.8 x10E3/uL [facility] RBC 5.39(H) 3.77 - 5.28 x10E6/uL [facility] Hemoglobin 9.7(L) 11.1 - 15.9 g/dL [facility] Hematocrit 35.5 34.0 - 46.6 % [facility] MCV 66(L) 79 - 97 fL [facility] MCH 18.0(L) 26.6 - 33.0 pg [facility] MCHC 27.3(L) 31.5 - 35.7 g/dL [facility] RDW 19.6(H) 11.7 - 15.4 % [facility] Platelets 213 150 - 450 x10E3/uL [facility] Neutrophils Relative 51 Not Estab. % [facility] Lymphocytes Relative 40 Not Estab. % [facility] Monocytes 5 Not Estab. % [facility] Eosinophils Relative 3 Not Estab. % [facility] Basophils Relative 1 Not Estab. % [facility] Neutrophils Absolute 4.1 1.4 - 7.0 x10E3/uL [facility] Lymphocytes Absolute 3.1 0.7 - 3.1 x10E3/uL [facility] Monocytes Absolute 0.4 0.1 - 0.9 x10E3/uL [facility] Eosinophils Absolute 0.2 0.0 - 0.4 x10E3/uL [facility] Basophils Absolute 0.1 0.0 - 0.2 x10E3/uL [facility] Immature Granulocytes 0 Not Estab. % [facility] Immature Grans (Absolute) 0.0 0.0 - 0.1 x10E3/uL [facility] Blood specimen (specimen) Venous blood / Unknown 05/24/2025 10:08 AM EDT 05/24/2025 Bart Marie MD LAB BLOOD ORDERABLES Final Resu lt [facility] [address] [place] [address] * (ABNORMAL) Ferritin (05/24/2025 10:08 AM EDT) Ferritin 404(H) 15 - 150 ng/mL [facility] Blood specimen (specimen) Venous blood / Unknown 05/24/2025 10:08 AM EDT 05/24/2025 Bart Marie MD LAB BLOOD ORDERABLES Final Resu lt [facility] [address] [place] [address] * (ABNORMAL) Renal function panel (05/24/2025 10:08 AM EDT) Glucose 117(H) 70 - 99 mg/dL [facility] BUN 34(H) 8 - 27 mg/dL [facility] Creatinine 1.56(H) 0.57 - 1.00 mg/dL [facility] eGFR CKD-EPI CR 2020 32(L) >59 mL/min/1.7 3 [facility] BUN/Creatinine Ratio 22 12 - 28 [facility] Sodium 141 134 - 144 mmol/L [facility] Potassium 5.3(H) 3.5 - 5.2 mmol/L [facility] Chloride 105 96 - 106 mmol/L [facility] Bicarbonate (CO2) 21 20 - 29 mmol/L [facility] Calcium 9.0 8.7 - 10.3 mg/dL [facility] Phosphorus 3.5 3.0 - 4.3 mg/dL [facility] Albumin 4.3 3.7 - 4.7 g/dL [facility] Blood specimen (specimen) Venous blood / Unknown 05/24/2025 10:08 AM EDT 05/24/2025 Bart Marie MD LAB BLOOD ORDERABLES Final Resu lt [facility] [address] [place] [address] * POCT hemoglobin (04/29/2025 1:40 PM EDT) Only the most recent of2 resultswithin the time period is included. Hemoglobin 10.4 Blood Capillary 04/29/2025 1 :40 PM EDT Rickey Almonte MD POINT OF CARE TEST ORDERABLES Final Result * (ABNORMAL) Hemoglobin A1c (07/18/2020 12:53 PM EDT) Hemoglobin A1C 6.3(H) (4.0-5.6) % [facility] 3 Comment: MONITORING: In known diabetic patients, hemoglobin A1c targets should be discussed with health care provider. DIAGNOSTIC USE: The [place] Diabetes Association (ADA) and the World Health Organization (WHO) recommend the use of HbA1c to diagnose diabetes using a threshold of 6.5%. Patients who have an HbA1c between 5.7% and 6.4% are considered at increased risk for developing diabetes in the future. CAUTION: Falsely low HbA1c results may be observed in patients with hemolytic anemia, homozygous forms of abnormal hemoglobin (e.g. SS, CC, SC), , recent blood loss or hemoglobin F greater than 7%. Fructosamine may be used as an alternate test in these cases. REFERENCE: ADA: Standards of Medical Care in Diabetes 2020, The Journal of Clinical and Applied Research and Education Volume 43, Supplement 1 Testing performed or reported by ~[facility], ~a Service of [facility], ~[address] [place] [id number]~ Leonarda Rodriguez MD, Process Engineering Technician~ 07/18/2020 12:5 3 PM EDT us Bart Marie MD LAB BLOOD ORDERABLES Final Resu lt [facility] 3 from Last 3 Months or Most Recently Relevant to Health Maintenance Insurance Medicaid [place] Medicare Medicaid [place] Medicare Care Teams Energy Trading Analyst Relationship Specialty Start Date End Date Yeyo Perez MD [address] [place] [id number] PCP - General Internal Medicine 11/20/21
== END 2025-06-07 09:21 | disposition home or self-care (01) ==
LOC: HO.HSM 08:48
PROVIDERS: PCP Internal Medicine; Referring Provider Internal Medicine; Visit Provider Psychiatry & Neurology Neurology
DX: G62.9 Polyneuropathy, unspecified (principal)
CPT/HCPCS: 99214

== ENCOUNTER → 2025-06-07 08:48 | Outpatient (BNVA) | payer MEDICARE, MEDICAID, SELFPAY | PROVIDERS: PCP Internal Medicine; Referring Provider Internal Medicine; Visit Provider Psychiatry & Neurology Neurology | DX: G60.8 Other hereditary and idiopathic neuropathies (principal); Z79.01 Long term (current) use of anticoagulants; Z79.899 Other long term (current) drug therapy | CPT/HCPCS: 99212 ==

== ENCOUNTER 2025-08-09 10:31 | Outpatient (AMB) | payer MEDICARE, MEDICAID, SELFPAY ==
--- NOTE | 2025-08-09 10:32 | MHC.OFFVIS ---
Intake Visit Reasons: 2 m for pn Allergies No Known Allergies Allergy (Verified 05/31/25 09:10) HPI Comments Details: The patient is an 89-year-old female presenting with blurred vision, dizziness, and sleep disorder. The symptoms originated while on previous medications and have been persistent following a change in prescription. Initially, the patient noted that while the acute severity of symptoms reduced, they did not resolve completely, as both blurred vision and dizziness persisted. These symptoms seem to have worsened over time, especially concerning visual clarity and balance, with the patient having difficulty deciding on medication suitability. The patient reports erratic symptoms at night and seeks advice on interrupting or managing medication as needed for severe episodes. Additionally, there are ongoing issues with sleep, though details regarding the type and nature of these disturbances are less clear from the conversation. The patient queries about transitioning to a 90-day medication supply due to insurance-related constraints, but clarity on this issue is pending. [facility] Medical History (Updated 06/07/25 @ 09:12 by Lola Dowd MD) Numbness and tingling Anxiety disorder Seizure disorder Hypertension Multifactorial gait disorder Cerebral microvascular disease Peripheral neuropathy Surgical History (Updated 05/31/25 @ 09:12 by Latoya Chau CMA) S/P cardiac pacemaker procedure Review of Systems Narrative - Neurological: Reports blurred vision and dizziness, worse balance than before. - Ophthalmologic: Reports worsening blurry vision. - Sleep: Reports sleep disorders, unspecified type. - General: Reports no difference with current medication initially noted as better. Physical Exam Neuro Other: Mental Status: Alert and oriented to person, place, and time. Normal attention. Normal spontaneous speech, fluency, and comprehension. Cranial Nerves: CN II: Visual gama full to confrontation, visual acuity intact. CN III, IV, : Pupils equal, round, reactive to light and accommodation. Extraocular movements are normal. CN V: Facial sensation is normal. CN VII: Facial movements symmetrical. CN VIII: Hearing intact to bedside conversation is normal. CN IX, X: Palate elevates symmetrically. CN XI: Shoulder shrug and head turn symmetrical. CN XII: Tongue midline without atrophy or fasciculations. Extrapyramidal: Full facial expressions and blinking. No rigidity. Movements are appropriate with no tremor or abnormality. Speech: Normal; no dysarthria or tremor. 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 04/27/24. Routine EEG at off in Jul 2022: WNL CT brain WO at [place] in 2019: WM changes (reported) CT brain WO from [place] in April 2022: mild to mod MVD. Code(s): G62.9 - Polyneuropathy, unspecified Category: Medical Qualifiers: Peripheral neuropathy type: polyneuropathy, unspecified Qualified Code(s): G62.9 - Polyneuropathy, unspecified Plan Impression: Neuropathic symptoms affecting her feet and legs at night due to peripheral neuropathy associated with anxiety disorder Recommendations: Continue pregabalin 100 mg at night which was helping. Stay active and tried to walk a mi to every day Medications: Refilled pregabalin 100 mg orally one at bedtime; 90 caps 0RF pregabalin 100 mg orally one at bedtime; 90 caps 1RF Coding Level of Care Code Est Pt Level 4 (05084) Diagnoses Peripheral polyneuropathy G62.9 Peripheral neuropathy type: polyneuropathy, unspecified
--- OUTSIDE RECORDS SUMMARY | 2025-08-09 12:26 | XMS_ITS | Clinical Summary ---
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 4 Active medical supply, miscellaneous (MISCELLANEOUS MEDICAL SUPPLY MISC) RESPIRATORY THERAPY SUPPLIES ([employer] HOLDING CHAMBER/MASK) DEVICE 1 Puff by Does not apply route as needed (shortness of breath). 1 Active calcium carb/vit D3/minerals (CALCIUM CARBONATE-VIT D3-MIN ORAL) Take 1 tablet by mouth daily. Active cholecalciferol (VITAMIN D-3) 25 mcg (1,000 unit) capsule TAKE 1 CAPSULE BY MOUTH EVERY DAY 90 capsule 1 5 Active gabapentin (NEURONTIN) 100 mg capsule Take 2 capsules (200 mg total) by mouth at bedtime. 180 each 1 5 Active metoprolol tartrate (LOPRESSOR) 25 mg tablet TAKE 1 TABLET BY MOUTH TWICE A DAY 180 tablet 1 5 Active atorvastatin (LIPITOR) 20 mg tablet TAKE 1 TABLET BY MOUTH EVERY DAY 90 tablet 1 5 Active ferrous sulfate 325 mg (65 mg elemental iron) tablet TAKE 1 TABLET BY MOUTH EVERY DAY 90 tablet 1 5 Active acetaminophen (TYLENOL 8 HOUR) 650 mg 8 hr tablet TAKE 1 TABLET BY MOUTH EVERY 8 HOURS NEEDED FOR PAIN 30 tablet 1 5 Active alendronate (FOSAMAX) 70 mg tablet TAKE 1 TABLET BY MOUTH ONE TIME PER WEEK 12 tablet 1 5 Active amLODIPine (NORVASC) 10 mg tablet TAKE 1 TABLET BY MOUTH 1 TIME EACH DAY. 90 tablet 1 5 Active allopurinoL (ZYLOPRIM) 100 mg tablet TAKE 1 TABLET BY MOUTH EVERY DAY 90 tablet 5 Active Eliquis 2.5 mg tablet TAKE 1 TABLET BY MOUTH TWICE A DAY 180 tablet 1 5 Active valsartan (DIOVAN) 80 mg tablet TAKE 1 TABLET BY MOUTH EVERY DAY 90 tablet 1 5 Active Active Problems Problem Noted Date Diagnosed [...] pain 11/06/2024 PAF (paroxysmal atrial fibri llation) ([facility] V24, [facility] V28) 07/24/2022 Overview (08/18/2024): Last Assessment & Plan: Patient has been noted to have paroxysmal atrial fibrillation on device monitoring. She recently was treated for a TIA while vacationing in [facility]. Her [id number]- VASc score is 6 representing a 9.7% [...] yusuf. Also, the patient has an elevated [id number] score and continues on anticoagulation therapy with apixaban. The patient is on Eliquis 2.5 mg orally twice a day given her age and that her creatinine usually hovers around 1.5. No episodes of abnormal bleeding have been noted. Will continue current therapy. TIA (transient ischemic attack) 07/03/2022 Coronary artery disease invo lving [place] coronary artery of [place] heart without angina pectoris 01/18/2021 Overview (08/18/2024): [...] her current medication regimen. Ascending aorta dilation ([facility] V24) 0 Overview (08/18/2024): 09/09 3.8 cm [...] Benign hypertensive kidney disease 11/20/2018 Goiter 01/30/2018 Gackle light chain disease ([facility] V24) 01/31/20 18 Gout 06/11/2016 Anemia 02/03/2016 Overview (08/18/2024): Mild, possible thallesemia Renal cyst, acquired, right 01/03/2016 Thalassemia minor 12/27/2015 Macular drusen 06/16/2015 Pseudophakia 06/16/2015 PVD (posterior vitreous detachment) 06/16/2015 CKD (chronic kidney disease) , stage III ([facility] V24, [facility] V28) 11/25/2013 Overview (08/18/2024): Microalbuminuria 11/25/2013 Overview (08/18/2024): Microalbumin 73 on 06/25/12. 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 Paroxysmal atrial fibrillation was [...] th renal manifestations (CMS/HCC V24, CMS/HCC V28) 11/02/2005 Resolved Problems Problem Noted Date Diagnosed Date Resolved Date Heart block, AV 03/06/2021 01/19/2025 Aortic atherosclerosis (CMS/HCC V24) 11/26/2011 01/19/2025 Chest pain 10/16/2006 01/19/2025 Encounters Date Type Department Care Team Description 08/01/2025 10:15 PM EDT Ancillary Procedure [facility] - [address] [place] [address] 07/27/2025 1:30 PM EDT Ancillary Procedure [facility] - [address] [place] [address] 07/20/2025 Telephone [facility] - [address] [place] [phone] James Sorensen MD 07/12/2025 3:18 PM EDT - 07/12/2025 11:59 PM EDT Hospital Encounter [facility] Ultrasound [address] [place] [phone] Localized edema Discharge Disposition: Home or Self Care 07/07/2025 Telephone Internal [facility] - [address] [place] [address] Yeyo Perez MD from Last 3 Months Immunizations Immunization Administration Dates Next Due H1N1 Inj Preservative Free 11/17/2009 Influenza Quadravalent, MDCK , 0.5ml, with preservative (Flucelvax) 6mo and older 11/20/2018,09/20/2017 Influenza trivalent, 0.5mL ( Fluad) 65yo and older 07/06/2024,07/13/2022,07/04/2020 Influenza trivalent, 0.5mL, preservative free (Fluarix; FluLaval; Fluzone) ages 6mo and older (Afluria) 3 years and older 08/10/2016,10/28/2015,08/20/2014,09/08,08/29/2012,07/20/2011,11/17/2009 ,09/15/2008,11/02/2005 Pfizer SARS-CoV-2 COVID-19, mRNA, LNP-S, preservative free 11/26/2020 Pneumococcal conjugate 13 va lent (Prevnar 13, PCV13) 2mo and older 10/28/2015 Pneumococcal polysaccharide 23 valent (Pneumovax 23) 2yo and older 06/27/2012 Td Tetanus diptheria (Tdvax) 7yo and older 11/02/2005 Zoster recombinant (Shingrix ) 19yo and older 05/02/2020 Surgical History Surgery Date Site/Laterality Comments TONSILLECTOMY ADENOIDECTOMY, BILATERAL MYRINGOTOMY AND TUBES PROCEDURE: DC TONSILLECTOMY & ADENOIDECTOMY <AGE 12 APPENDECTOMY PROCEDURE: DC APPENDECTOMY ESOPHAGOGASTRODUODENOSCOPY 10/29/11 PROCEDURE: DC ESOPHAGOGASTRODUODENOSCOPY TRANSORAL DIAGNOSTIC; COMMENT: normal COLONOSCOPY 04/15/07 PROCEDURE: HISTORICAL COLONOSCOPY; COMMENT: adenoma; repeat in five years COLONOSCOPY W/ POLYPECTOMY 09/19/12 PROCEDURE: DC COLSC FLX W/RMVL OF TUMOR POLYP LESION SNARE TQ; COMMENT: adenoma, tics, hemorrhoids; would not repeat CATARACT EXTRACTION PROCEDURE: HISTORICAL CATARACT REMOVAL; COMMENT: 12/22/14 OS, 11/08/14 OD BREAST BIOPSY Right PROCEDURE: BX BREAST; PERC NEEDLE CORE W/IMAG GUID; COMMENT: x3, b9,rt. & lt.-benign BREAST SURGERY 2012 Right PROCEDURE: DC UNLISTED PROCEDURE BREAST; COMMENT: x2, b9 Medical [...] Description 10/26/2025 1:00 PM EST Ancillary Procedure [facility] - [address] [facility] [address] [place] [address] Health Maintenance Due Date Last Done Comments Diabetes: Annual Foot Exam 1945 Diabetes: Annual Retina Eye Exam 1945 RSV Immunization Adult Patients (1 - 1-dose 75+ series) 2011 DTaP,Tdap,and Td Vaccines (2 - Td or Tdap) 11/02/2015 11/02/2005 Falls Risk Assessment 09/29/2022 Medicare Annual Wellness Visit 09/29/2022 Social Influencers of Health Screening 09/29/2022 Depression Screening 10/21/2024 Diabetes: Blood Sugar Control Test (HGBA1C) 06/06/2025 12/07/2024, 08/02/2024, 07/31/2024, Additional history exists COVID-19 Vaccine ( season) 2025 07/21/2023, 01/18/2022, 07/19/2021, Additional history exists Influenza Vaccine (#1) 2025 [...] this topic Medical Devices Implanted Type Area Dishwashing Machine Operator Device Identifier Shelf Expiration Date Model / Serial / Lot [facility] 2272 Assurity Mri(Tm) [id number] Implanted: by James Sorensen MD (Quantity not on file) Cardiac Pacemaker Left: Chest [employer] 2272 ASSURITY MRI(TM) / [id number] / Procedures Procedure Name Priority Date/Time Associated Diagnosis Comments CARDIAC DEVICE CHECK- REMOTE- MURJ Routine 08/01/2025 10:10 PM EDT CARDIAC DEVICE CHECK- REMOTE- MURJ Routine 07/27/2025 1:25 PM EDT VAS US DUPLEX LOWER EXT VENOUS BILAT Routine 07/12/2025 4:20 PM EDT Localized edema COMPREHENSIVE METABOLIC PANEL Routine 12/07/2024 9:03 AM EST Type 2 diabetes mellitus with other diabetic kidney complication, without long-term current use of insulin ([facility] V24, [facility] V28) HEMOGLOBIN A1C Routine 12/07/2024 9:03 AM EST Type 2 diabetes mellitus with other diabetic kidney complication, without long-term current use of insulin ([facility] V24, [facility] V28) LIPID PANEL WITH REFLEX TO DIRECT LDL Routine 12/07/2024 9:03 AM EST Type 2 diabetes mellitus with other diabetic kidney complication, without long-term current use of insulin ([facility] V24, [facility] V28) DXA BONE DENSITY STUDY 1+ SITS AXIAL SKEL Routine 10/19/2019 9:24 AM EST Age-related osteoporosis without current pathological fracture from Last 3 Months or Most Recently Relevant to Health Maintenance Results * Cardiac device check - Remote- MURJ (08/01/2025 10:10 PM EDT) Only the most recent of2 resultswithin the time period is included. Date Time Interrogation Session [id number] CV DEVICE CHECK Type Interrogation Session Remote Scheduled CV DEVICE CHECK Implantable Pulse Generator Dishwashing Machine Operator [employer] CV DEVICE CHECK Implantable Pulse Generator Type IPG CV DEVICE CHECK Implantable Pulse Generator Model 2272 Assurity MRI(TM) CV DEVICE CHECK Implantable Pulse Generator Serial Number [id number] CV DEVICE CHECK Implantable Pulse Generator Implant Date [id number] CV DEVICE CHECK Battery Remaining Percentage 78.00 CV DEVICE CHECK Battery Remaining Longevity 47.0 CV DEVICE CHECK Battery Voltage 2.980 CV D EVICE CHECK Battery CORPORATE COMMUNICATIONS SPECIALIST Trigger 2.600 CV DEVICE CHECK Battery Status Middle of Service CV DEVICE CHECK Joe Statistic RA Percent Paced 99.00 CV DEVICE CHECK Joe Statistic RV Percent Paced 99.00 CV DEVICE CHECK Atrial Tachy Statistic AT/AF [place] Percent 0.00 CV DEVICE CHECK Lead Channel Sensing Intrinsic Amplitude 1.100 CV DEVICE CHECK Lead Channel Setting Sensing Sensitivity 0.30 CV DEVICE CHECK Lead Channel Impedance Value 330 CV DEVICE CHECK Lead Channel Setting Pacing Amplitude 5.000 CV DEVICE CHECK Lead Channel Setting Pacing Pulse Width 0.4 CV DEVICE CHECK Lead Channel Sensing Intrinsic Amplitude 6.800 CV DEVICE CHECK Lead Channel Setting Sensing Sensitivity 0.50 CV DEVICE CHECK Lead Channel Impedance Value 360 CV DEVICE CHECK Lead Channel Pacing Threshold Amplitude 0.875 CV DEVICE CHECK Lead Channel Pacing Threshold Pulse Width 0.4 CV DEVICE CHECK Lead Channel RV Pacing Threshold Date 2025-07-29 CV DEVICE CHECK Lead Channel Setting Pacing Amplitude 1.125 CV DEVICE CHECK Lead Channel Setting Pacing [...] 150 CV DEVICE CHECK Date of Service 2025-10-26 CV DEVICE CHECK Anatomical Region Laterality Modality Device Interroga tion 07/29/2025 3:45 AM EDT Impressions 08/01/2025 8:14 PM EDT Unscheduled Remote * Reason: Re Check Atrial Outputs (currently defaulted to 5.0 V) * Alerts or Events: 0 * Battery: Battery is at 78%, 3.92 yrs * Sensing, impedance and thresholds reviewed * Programmed parameters reviewed * Presenting rhythm reviewed * Heart Rate Histograms reviewed * No significant changes noted Narrative Procedure Note James Sorensen MD - 08/01/2025 IMPRESSION: Unscheduled Remote * Reason: Re Check Atrial Outputs (currently defaulted to 5.0 V) * Alerts or Events: 0 * Battery: Battery is at 78%, 3.92 yrs * Sensing, impedance and thresholds reviewed * Programmed parameters reviewed * Presenting rhythm reviewed * Heart Rate Histograms reviewed * No significant changes noted us James Sorensen MD CV IMPLANTABLE CARDIAC DEV ICE PROCEDURES Final Result * Vascular US duplex lower extremity venous bilateral (07/12/2025 4:20 PM EDT) Anatomical Region Laterality Modality Vascular, Abdomen Ultrasound 07/12/2025 4:37 PM EDT Impressions 07/12/2025 4:39 PM EDT NO RIGHT OR LEFT LOWER EXTREMITY DEEP VENOUS THROMBOSIS. Bilateral popliteal fossa cysts. -------- FINAL REPORT -------- Dictated By: Nidhi Lucio Dictated Date: 07/12/2025 16:37 ET Assigned Physician: Nidhi Lucio Reviewed and Electronically Signed By: Nidhi Lucio Signed Date: 07/12/2025 16:39 ET Workstation ID: [id number] Transcribed By: Self Edit Transcribed Date: 07/12/2025 16:37 ET Narrative 07/12/2025 4:39 PM EDT PROCEDURE: VAS US DUPLEX LOWER EXT VENOUS BILAT INDICATION: left lower extremity swelling, R/O DVT TECHNIQUE: 2-D and color Doppler imaging of the lower extremity venous vasculature with compression and augmentation maneuvers. COMPARISON: No priors available. FINDINGS: RIGHT: There is normal flow, compression, and augmentation from the common femoral through the popliteal vein. Tibial fossa cyst measuring 4.8 x 1.2 x 5.2 cm LEFT: There is normal flow, compression, and augmentation from the common femoral through the popliteal vein. Popliteal fossa cyst measuring 2.7 x 0.8 x 1.7 cm. Procedure Note Nidhi Lucio MD - 07/12/2025 PROCEDURE: VAS US DUPLEX LOWER EXT VENOUS BILAT INDICATION: left lower extremity swelling, R/O DVT TECHNIQUE: 2-D and color Doppler imaging of the lower extremity venousvasculature with compression and augmentation maneuvers. COMPARISON: No priors available. FINDINGS: RIGHT: There is normal flow, compression, and augmentation from the commonfemoral through the popliteal vein. Tibial fossa cyst measuring 4.8 x 1.2x 5.2 cm LEFT: There is normal flow, compression, and augmentation from the commonfemoral through the popliteal vein. Popliteal fossa cyst measuring 2.7 x0.8 x 1.7 cm. IMPRESSION: NO RIGHT OR LEFT LOWER EXTREMITY DEEP VENOUS THROMBOSIS. Bilateral popliteal fossa cysts. -------- FINAL REPORT -------- Dictated By: Nidhi Lucio Dictated Date: 07/12/2025 16:37 ET Assigned Physician: Nidhi Lucio Reviewed and Electronically Signed By: Nidhi Lucio Signed Date: 07/12/2025 16:39 ET Workstation ID: [id number] Transcribed By: Self Edit Transcribed Date: 07/12/2025 16:37 ET us Bart Marie MD CV VASCULAR PROCEDURES Final Re sult * Lipid panel with reflex to direct LDL (12/07/2024 9:03 AM EST) Cholesterol 152 0 - 200 mg/dL LAB CHEMISTRY METHOD 12/07/2024 12:28 PM EST [facility] Triglycerides 113 0 - 150 mg/dL LAB CHEMISTRY METHOD 12/07/2024 12:28 PM EST [facility] HDL 57 >=40 mg/dL LAB CHEMISTRY METHOD 12/07/2024 12:28 PM EST [facility] LDL Calculated 72 0 - 100 mg/dL LAB CHEMISTRY METHOD 12/07/2024 12:28 PM EST [facility] VLDL Cholesterol Bhaskar 22.6 mg/dL LAB CHEMISTRY METHOD 12/07/2024 12:28 PM EST [facility] Non HDL Chol. (LDL+VLDL) 95 <145 mg/dL LAB CHEMISTRY METHOD 12/07/2024 12:28 PM EST [facility] Chol/HDL Ratio 2.7 0.0 - 4.4 LAB CHEMISTRY METHOD 12/07/2024 12:28 PM EST [facility] Blood Venous blood specimen / Unknown Venipuncture / Unknown 12/07/2024 9:03 AM EST 12/07/2024 9:03 AM EST us Yeyo Perez MD LAB BLOOD ORDERABLES Final Res ult [facility] [address] [place] [address], * (ABNORMAL) Hemoglobin A1c (12/07/2024 9:03 AM EST) Hemoglobin A1C 6.7(H) <6.5 % LAB CHEMISTRY METHOD 12/07/2024 2:[address] [facility] Mean Bld Glu Estim. 146 mg/dL LAB CHEMISTRY METHOD 12/07/2024 2:[address] [facility] Blood Venous blood specimen / Unknown Venipuncture / Unknown 12/07/2024 9:03 AM EST 12/07/2024 9:03 AM EST us Yeyo Perez MD LAB BLOOD ORDERABLES Final Res ult [facility] [address] [place] [address], [place] [phone] * (ABNORMAL) Comprehensive metabolic panel (12/07/2024 9:03 AM EST) Sodium 141 133 - 145 mmol/L LAB CHEMISTRY METHOD 12/07/2024 12:[address] [facility] Potassium 4.7 3.5 - 5.5 mmol/L LAB CHEMISTRY METHOD 12/07/2024 12:[address] [facility] Chloride 110 96 - 110 mmol/L LAB CHEMISTRY METHOD 12/07/2024 12:[address] [facility] CO2 29 21 - 32 mmol/L LAB CHEMISTRY METHOD 12/07/2024 12:[address] [facility] Anion Gap 2(L) 3 - 11 LAB CHEMISTRY METHOD 12/07/2024 12:[address] [facility] Glucose 129(H) 70 - 100 mg/dL LAB CHEMISTRY METHOD 12/07/2024 12:[address] [facility] BUN 31(H) 5 - 25 mg/dL LAB CHEMISTRY METHOD 12/07/2024 12:[address] [facility] Creatinine 1.45(H) 0.50 - 1.10 mg/dL LAB CHEMISTRY METHOD 12/07/2024 12:[address] [facility] eGFR 35(L) >=60 mL/min/1. 73m2 LAB CHEMISTRY METHOD 12/07/2024 12:[address] [facility] Comment:Calculation based on the Chronic Kidney Disease Epidemiology Collaboration (CKD-EPI) equation refit without adjustment for race. BUN/Creatinine Ratio 21.4 LAB CHEMISTRY METHOD 12/07/2024 12:[address] [facility] Calcium 9.1 8.5 - 10.5 mg/dL LAB CHEMISTRY METHOD 12/07/2024 12:[address] [facility] AST (SGOT) 15 10 - 42 unit/L LAB CHEMISTRY METHOD 12/07/2024 12:[address] [facility] ALT (SGPT) 19 10 - 60 unit/L LAB CHEMISTRY METHOD 12/07/2024 12:[address] [facility] Alkaline Phosphatase 60 42 - 121 unit/L LAB CHEMISTRY METHOD 12/07/2024 12:[address] [facility] Total Protein 6.9 6.0 - 8.0 g/dL LAB CHEMISTRY METHOD 12/07/2024 12:[address] [facility] Albumin 3.5 3.2 - 5.0 g/dL LAB CHEMISTRY METHOD 12/07/2024 12:[address] [facility] Total Bilirubin 0.5 0.0 - 1.4 mg/dL LAB CHEMISTRY METHOD 12/07/2024 12:[address] [facility] Blood Venous blood specimen / Unknown Venipuncture / Unknown 12/07/2024 9:03 AM EST 12/07/2024 9:03 AM EST us Yeyo Perez MD LAB BLOOD ORDERABLES Final Res ult [facility] [address] [place] [address], * DXA BONE DENSITY STUDY 1+ SITS [...] should be classified as having osteoporosis. [facility] Department of Internal Medicine recommends using National [...] Colby should beclassified as having osteoporosis. [facility] Department of Internal Medicine recommendsusing National Osteoporosis [...] fracture risk by FRAX. Jose Cuenca MD [facility] DXA PROCEDURES Final Result from Last 3 Months or Most Recently Relevant to Health Maintenance Insurance MEDICARE MEDICAID - [place] Care Teams Field Crop Harvest Contractor Relationship Specialty Start Date End Date Yeyo Perez MD [address] [place] [phone] PCP - General Internal Medicine 05/26/20
--- OUTSIDE RECORDS SUMMARY | 2025-08-09 12:27 | XMS_ITS ---
Author Name [facility] Organization Unknown Care Team Organization Name Specialty Phone Email Start Date End [facility] 06/09/2025
--- OUTSIDE RECORDS SUMMARY | 2025-08-09 12:27 | XMS_ITS | Encounter Summary ---
Author Organization [facility] Address [address] [place] [address] Care Team Providers Care Teletype Operator Name Role Phone Yeyo Perez MD Primary Care Provider Reason for Visit * Reason Onset Date Comments Request For Order(s) 07/07/2025 [facility] Encounter Details Date Type Department Care Team (Late st Contact Info) Description 07/07/2025 Telephone Internal Medicine - [address] [phone] Yeyo Perez MD [address] [place] [phone] Social History Tobacco Use Types Packs/Day Years [...] on file Sexual Orientation Not on file documented as of this encounter Progress Notes * Donald Meadows - 07/07/2025 9:20 AM EDT Faxed order received from [facility]. Orders placed in Yeyo Perez MD bin for signing, please fax to [phone]. documented in this encounter Plan of Treatment Upcoming Encounters Date Type Department Care Team (Late st Contact Info) Description 10/26/2025 1:00 PM EST Ancillary Procedure [facility] [address] [facility] [address] [place] [address] documented as of this encounter Visit Diagnoses Not on filedocumented in this encounter Care Teams Teletype Operator Relationship Specialty Start Date End Date Yeyo Perez MD [address] [place] [phone] PCP - General Internal Medicine 05/26/20 documented as of this encounter
--- OUTSIDE RECORDS SUMMARY | 2025-08-09 12:27 | XMS_ITS | Clinical Summary ---
Author Organization [facility] Address [address] [address] Phone Care Team Providers Care Collar Band Creaser Name Role Phone Yeyo Perez MD Primary Care Provider [phone] Allergies Active Allergy Reactions Criticality Noted Date Comments Nsaids 05/03/2008 Renal insufficiency Renal insufficiency Medications Ferrous Sulfate (Iron) 325 (65 Fe) MG tablet Take 65 mg by mouth 1 (one) time each day Active alendronate (FOSAMAX) 70 MG tablet Take 1 tablet by mouth 1 (one) time per week 09/22/2021 Active allopurinol (ZYLOPRIM) 100 MG tablet Take 1 tablet by mouth 1 (one) time each day 01/24/2022 Active atorvastatin (LIPITOR) 20 MG tablet Take 1 tablet by mouth 1 (one) time each day 01/25/2022 Active epoetin david (EPOGEN,PROCRIT ) 51187 UNIT/ML injectionIndica tions: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 Active cyanocobalamin (VITAMIN B-12) 1000 MCG/ML injection 1,000 mcg 03/23/2024 Active apixaban (Eliquis) 2.5 MG tablet Take 2.5 mg by mouth in the morning and 2.5 mg in the evening. 07/06/2024 Active pregabalin (LYRICA) 100 MG capsule Take 100 mg by mouth at bed time 2025 Active valsartan (DIOVAN) 40 MG tablet Take 2 tablets (80 mg total) by mouth in the morning and 2 tablets (80 mg total) in the evening. 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 71200 Units IV Every 14 days 10/24/2022 Active Epoetin David-epbx solution 20,000 UnitsIndications:Chroni c kidney disease, not otherwise specified,Anemia in chronic kidney disease 85099 Units IJ Once 05/16/2023 A ctive Epoetin David-epbx solution 20,000 UnitsIndications:Chroni c kidney disease, not otherwise specified,Anemia in chronic kidney disease 73970 Units IJ Once 03/27/2024 A ctive Epoetin David-epbx solution 20,000 UnitsIndications:Stage 3b chronic kidney disease (HCC),Anemia in chronic kidney disease 55122 Units IJ Once 07/29/2025 07/29/2025 E nded Active Problems Problem Noted Date Diagnosed Date Edema 06/28/2025 Chronic kidney disease, stage 4 (severe) 022 [...] Left ventricular systolic dysfunction 11/20/2018 Goiter 01/30/2018 [place]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 Gout 06/11/2016 Anemia [...] Encounters Date Type Department Care Team Description 07/29/2025 3:15 PM EDT Office Visit [facility] [address] [phone] Anemia in chronic kidney disease (Primary Dx); Stage 3b chronic kidney disease (HCC) 06/29/2025 Orders Only [facility] [address] [address] Bart Marie MD Localized edema 06/28/2025 4:30 PM EDT Clinical Support [facility] [address] [phone] Stage 3b chronic kidney disease (HCC) (Primary Dx); Renal disorder due to type 2 diabetes mellitus <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); Anemia in chronic kidney disease 06/28/2025 3:45 PM EDT Office Visit [facility] [address] [phone] Bart Marie MD Stage 3b chronic kidney disease (HCC) (Primary Dx); Renal disorder due to type 2 diabetes mellitus <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); Anemia in chronic kidney disease; Hypertensive renal disease; Localized edema 05/27/2025 1:30 PM EDT Clinical Support [facility] [address] [facility] [address] [place] [phone] Anemia in chronic kidney disease (Primary Dx); Chronic kidney disease, stage 4 (severe) (HCC) 05/12/2025 Orders Only [facility] [address] [facility] [address] [place] [phone] Bart Marie MD Chronic kidney disease, stage 4 (severe) (HCC); Renal disorder due to type 2 diabetes mellitus <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); Microalbuminuria; Anemia in chronic kidney disease from Last 3 Months Immunizations Immunization Administration [...] Sign Reading Time Taken Comments Blood Pressure 120/60 07/29/2025 4:55 PM EDT Pulse 60 06/28/2025 4:13 PM EDT Temperature - - Respiratory Rate 22 03/13/2023 1:53 PM EDT Oxygen Saturation 99% 06/28/2025 4:13 PM EDT Inhaled Oxygen Concentration - - Weight 73.7 kg (162 lb 6.4 oz) 06/28/2025 4:13 P M EDT Height 152.4 cm (5') 09/21/2024 3:21 PM EST Body Mass Index 31.72 09/21/2024 3:21 PM EST Plan of Treatment Upcoming Encounters Date Type Department Care Team (Latest Contact Info) Description 08/15/2025 Orders Only [facility] [address] [phone] Batr Marie MD [address] [phone] Stage 3b chronic kidney disease (HCC); Renal disorder due to type 2 diabetes mellitus <Unspecified DM Medication; 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); Anemia in chronic kidney disease; Hypertensive renal disease 08/26/2025 1:30 PM EST Clinical Support [facility] [address] [phone] 10/25/2025 2:45 PM EST Office Visit [facility] [place] [id number] [phone] Bart Marie MD [address] [phone] Health Maintenance Due Date Last Done Comments Diabetes: Ophthalmology Exam 11/18/2020 06/19/2017, 06/18/2016, 10/05/2013, Additional history exists Diabetes: Pedal Pulse Checked 11/18/2020 Diabetes: Sensory Foot Exam 11/18/2020 Diabetes: Visual Foot Exam 11/18/2020 Diabetes: Hemoglobin A1C 03/06/2025 025, 12/07/2024, 08/02/2024, Additional history exists Influenza Vaccine (#1) 2025 4, 07/13/2022, 07/04/2020, Additional history exists Pneumococcal Vaccine: 50+ Years Completed 10/28/2015, 06/27/2012 Pneumococcal Vaccine: Peds (0 to 5 Years) and At-Risk Patients (6 to 49 Years) Discontinued 10/28/2015, 06/27/2012 Hepatitis B Vaccine Aged Out No longe r eligible based on patient's age to complete this topic Procedures Procedure Name Priority Date/Time Associated Diagnosis Comments POCT HEMOGLOBIN Routine 07/29/2025 4:54 PM EDT Stage 3b chronic kidney disease (HCC) Anemia in chronic kidney disease POCT HEMOGLOBIN Routine 06/28/2025 4:50 PM EDT Stage 3b chronic kidney disease (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 Hemoglobin 10.0 Blood Capillary 07/29/2025 4 :54 PM EDT Rickey Almonte MD POINT OF CARE TEST ORDERABLES Final Result * (ABNORMAL) Iron Panel (Fe, TIBC, TSAT) (05/24/2025 10:08 AM EDT) TIBC 248(L) 250 - 450 ug/dL [facility] UIBC 140 118 - 369 ug/dL [facility] Iron 108 27 - 139 ug/dL [facility] Iron Saturation (TSat) 44 15 - 55 % [facility] Blood specimen (specimen) Venous blood / Unknown 05/24/2025 10:08 AM EDT 05/24/2025 Bart Marie MD LAB BLOOD ORDERABLES Final Resu lt [facility] [address] [place] [address] * (ABNORMAL) Urine Protein / creatinine ratio (05/24/2025 10:08 AM EDT) Creatinine, Ur 56.6 Not Estab. mg/dL [facility] Protein, Ur 33.4 Not Estab. mg/dL [facility] Urine Protein/Creati nine Ratio 590(H) 0 - 200 mg/g creat [facility] Urine specimen (specimen) Urine specimen obtained by clean catch procedure / Unknown 05/24/2025 10:08 AM EDT 05/24/2025 us Bart Marie MD LAB URINE ORDERABLES Final Resu lt [facility] [address] [place] [address] * (ABNORMAL) CBC and differential (05/24/2025 10:08 AM EDT) WBC 7.8 3.4 - 10.8 x10E3/uL [facility] RBC 5.39(H) 3.77 - 5.28 x10E6/uL [facility] Hemoglobin 9.7(L) 11.1 - 15.9 g/dL [facility] Hematocrit 35.5 34.0 - 46.6 % [facility] MCV 66(L) 79 - 97 fL [facility] MCH 18.0(L) 26.6 - 33.0 pg [facility] MCHC 27.3(L) 31.5 - 35.7 g/dL [facility] RDW 19.6(H) 11.7 - 15.4 % [facility] Platelets 213 150 - 450 x10E3/uL [facility] Neutrophils Relative 51 Not Estab. % [facility] Lymphocytes Relative 40 Not Estab. % [facility] Monocytes 5 Not Estab. % [facility] Eosinophils Relative 3 Not Estab. % [facility] Basophils Relative 1 Not Estab. % [facility] Neutrophils Absolute 4.1 1.4 - 7.0 x10E3/uL [facility] Lymphocytes Absolute 3.1 0.7 - 3.1 x10E3/uL [facility] Monocytes Absolute 0.4 0.1 - 0.9 x10E3/uL [facility] Eosinophils Absolute 0.2 0.0 - 0.4 x10E3/uL [facility] Basophils Absolute 0.1 0.0 - 0.2 x10E3/uL [facility] Immature Granulocytes 0 Not Estab. % [facility] Immature Grans (Absolute) 0.0 0.0 - 0.1 x10E3/uL [facility] Blood specimen (specimen) Venous blood / Unknown 05/24/2025 10:08 AM EDT 05/24/2025 Bart Marie MD LAB BLOOD ORDERABLES Final Resu lt [facility] [address] [place] [address] * (ABNORMAL) Ferritin (05/24/2025 10:08 AM EDT) Pathologist [facility] Ferritin 404(H) 15 - 150 ng/mL [facility] Blood specimen (specimen) Venous blood / Unknown 05/24/2025 10:08 AM EDT 05/24/2025 Bart Marie MD LAB BLOOD ORDERABLES [facility] [address] [place] [address] * (ABNORMAL) Renal function panel (05/24/2025 10:08 AM EDT) Glucose 117(H) 70 - 99 mg/dL [facility] BUN 34(H) 8 - 27 mg/dL [facility] Creatinine 1.56(H) 0.57 - 1.00 mg/dL [facility] eGFR CKD-EPI CR 2020 32(L) >59 mL/min/1.7 3 [facility] BUN/Creatinine Ratio 22 12 - 28 [facility] Sodium 141 134 - 144 mmol/L [facility] Potassium 5.3(H) 3.5 - 5.2 mmol/L [facility] Chloride 105 96 - 106 mmol/L [facility] Bicarbonate (CO2) 21 20 - 29 mmol/L [facility] Calcium 9.0 8.7 - 10.3 mg/dL [facility] Phosphorus 3.5 3.0 - 4.3 mg/dL [facility] Albumin 4.3 3.7 - 4.7 g/dL [facility] Blood specimen (specimen) Venous blood / Unknown 05/24/2025 10:08 AM EDT 05/24/2025 us Bart Marie MD LAB BLOOD ORDERABLES Final Resu lt [facility] [address] [place] [address] * (ABNORMAL) Hemoglobin A1c (07/18/2020 12:53 PM EDT) Hemoglobin A1C 6.3(H) (4.0-5.6) % [facility] 3 Comment: MONITORING: In known diabetic patients, hemoglobin A1c targets should be discussed with health care provider. DIAGNOSTIC USE: The [place] [employer] (ADA) and the World Health [...] Supplement 1 Testing performed or reported by ~[facility] [employer], ~a Service of [facility], ~[address] [place] [id number]~ Leonarda Rodriguez MD, Bondactor Machine Operator~ 07/18/2020 12:5 3 PM EDT us Bart Marie MD LAB BLOOD ORDERABLES Final Resu lt [facility] 3 from Last 3 Months or Most Recently Relevant to Health Maintenance Insurance [place] Care Teams Collar Band Creaser Relationship Specialty Start Date End Date Yeyo Perez MD [address] [place] [phone] PCP - General Internal Medicine 11/20/21
--- OUTSIDE RECORDS SUMMARY | 2025-08-09 12:27 | XMS_ITS | Clinical Summary ---
Author Organization [facility] Address [address] [place] [address] Care Team Providers Care Service Loss Control Consultant Name Role Phone Jose Cuenca MD Primary Care Provider [phone] Allergies Active Allergy Reactions Criticality Noted Date [...] age to complete this topic Care Teams Service Loss Control Consultant Relationship Specialty Start Date End Date Jose Cuenca MD [address] [facility] [place] [address] PCP - General Internal Medicine 11/21/18
== END 2025-08-09 10:45 | disposition home or self-care (01) ==
LOC: HO.HSM 10:31
PROVIDERS: PCP Internal Medicine; Visit Provider Psychiatry & Neurology Neurology
DX: G62.9 Polyneuropathy, unspecified (principal)
CPT/HCPCS: 99214

== ENCOUNTER → 2025-08-09 10:31 | Outpatient (BNVA) | payer MEDICARE, MEDICAID, SELFPAY | PROVIDERS: PCP Internal Medicine; Visit Provider Psychiatry & Neurology Neurology | DX: G62.9 Polyneuropathy, unspecified (principal) | CPT/HCPCS: 99212 ==